=== PATIENT | male | born 2005 | race Caucasian/White ===

== ENCOUNTER 2024-04-19 22:50 | Emergency (ER) | payer BC, SELFPAY ==
[2024-04-19 22:51] VITALS: BP 122/85; PULSE 72; RESP 16; TEMP 36.4; O2SAT 100
--- NOTE | 2024-04-19 23:52 | ED.EAR ---
HPI - Ear Problem General Chief complaint: Ear Stated complaint: for about a week I can barely hear out of me L ear Time Seen by Provider: 04/19/24 23:52 Source: patient Mode of arrival: ambulatory Limitations: no limitations History of Present Illness HPI Narrative: This is a 18-year-old male that presents to the emergency department for left ear pain. Reports decreased hearing. Reports he was recently sick with a sinus infection prior to his symptoms starting. Denies fevers. Related Data Allergies Allergy/AdvReac Type Severity Reaction Status Date / Time No Known Allergies Allergy Verified 01/25/23 13:53 Review of Systems Review of Systems: CONSTITUTIONAL: Denies fever ENT: Reports otalgia. All systems reviewed & are unremarkable except as noted in HPI and below PMFSH Past Medical History Medical History (Updated 04/19/24 @ 23:55 by Monica Amaya PA-C) ADD (attention deficit disorder) without hyperactivity Family History Family History Mother Hypertension Cerebrovascular accident Sibling Depression Social History Social History Social History: Student Smoking status: Never smoker Second hand tobacco smoke exposure: No Alcohol intake: never Substance use: never Substance use type: does not use Lack of Transportation: No Lack of Food: Never True Current Housing: I Have Housing Concerned About Future Housing: No Difficulty Paying Gas/Electric Bills: No Difficulty Paying for Meds: No Currently Unemployed: No Education: Decline to Answer Living arrangements: with family Occupation/Education: student Additional occupation/education comments: 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 Gender identity (if verbalized by the patient): Male Exam Narrative: GENERAL: Well-appearing, well-nourished, and in no acute distress. HEAD: Normocephalic, atraumatic. EYES: EOMI. ENT: Nares clear, no rhinorrhea or epistaxis. Mucous membranes moist. Oropharynx without tonsillar hypertrophy exudate or other lesions. Right TM pearly childers non-bulging. Left TM is erythematous, bulging NECK: Supple. No adenopathy or masses. EXTREMITIES: Normal range of motion. No edema. SKIN: Warm, dry, no rash. NEURO: No focal deficits. Alert and oriented x3. PSYCH: Normal mood and affect Course Course Emergency Course: patient agrees with plan of care Vital Signs Vital signs: Vital Signs Temperature 97.5 F L 04/19/24 22:51 Pulse Rate 72 04/19/24 22:51 Respiratory Rate 16 04/19/24 22:51 Blood Pressure 122/85 04/19/24 22:51 Pulse Oximetry 100 04/19/24 22:51 Oxygen Delivery Room Air 04/19/24 22:51 Temperature 97.5 F L 04/19/24 22:51 Pulse Rate 72 04/19/24 22:51 Respiratory Rate 16 04/19/24 22:51 Blood Pressure 122/85 04/19/24 22:51 Pulse Oximetry 100 04/19/24 22:51 Oxygen Delivery Room Air 04/19/24 22:51 Medical Decision Making MDM Narrative Medical decision making narrative: Patient presents to the emergency department for otalgia. Exam consistent with otitis media. Will be started on oral antibiotics. Instructed to follow up with primary provider Differential Diagnosis Differential Diagnosis: otitis media, otitis externa Vital Signs Vital Signs: Vital Signs Temperature 97.5 F L 04/19/24 22:51 Pulse Rate 72 04/19/24 22:51 Respiratory Rate 16 04/19/24 22:51 Blood Pressure 122/85 04/19/24 22:51 Pulse Oximetry 100 04/19/24 22:51 Oxygen Delivery Room Air 04/19/24 22:51 Temperature 97.5 F L 04/19/24 22:51 Pulse Rate 72 04/19/24 22:51 Respiratory Rate 16 04/19/24 22:51 Blood Pressure 122/85 04/19/24 22:51 Pulse Oximetry 100 04/19/24 22:51 Oxygen Delivery Room Air 04/19/24 22:51 Critical Care Time Critical Care Time Critical Care Time: No Discharge Plan Discharge Clinical Impression: Otitis media Qualifiers: Otitis media type: unspecified Chronicity: acute Qualified Code(s): H66.90 - Otitis media, unspecified, unspecified ear Patient Disposition: Home, Self-Care Condition: Stable Instructions: Antibiotic Form, Ear Infection (ED) Additional Instructions: Return to the emergency department for worsening symptoms, or any other concerns Remain well-hydrated, get plenty of rest. Take Tylenol or Motrin [id number] for pain as needed. Take oral antibiotics as prescribed Follow up with primary care doctor Patient Language: Albanian Prescriptions: New amoxicillin-pot clavulanate 875-125 mg tablet 1 tablet PO Q12H 7 Days Qty: 14 0RF No Action Qelbree 200 mg capsule,extended release 24hr 200 mg PO DAILY Qty: 30 0RF Follow-up/Referrals: Sheryl Gray MD [Primary Care Provider] -
== END 2024-04-20 00:02 | disposition home or self-care (01) ==
PROVIDERS: Emergency Provider Physician Assistant; PCP Family Medicine
DX: H66.92 Otitis media, unspecified, left ear (principal)
CPT/HCPCS: 99283